=== PATIENT | female | born 1985 | race Caucasian/White ===

== ENCOUNTER 2017-08-28 09:55 | Outpatient (CLI) | payer BC, MEDICAID ==
[~2017-08-28] VITALS: Ht 167.6 cm; Wt 128.4 kg
[2017-08-28 11:22] VITALS: BP 117/55
[2017-08-28] MEDS ORDERED: PREN1TAB86 PO (11:38)
--- NOTE | 2017-08-29 08:13 | Physician Query-Final Dx ---
MAMTA BUNCH 08/29/17 0813: Clinic Account Progress/Dx Physician Query: Please give diagnosis Date of Service Aug 28, 2017 at 09:55 MELISSA JIANG DO 09/13/17 1049: Clinic Account Progress/Dx DIAGNOSIS: Diagnosis post coital spotting, third trimester previous section MAMTA BUNCH Aug 29, 2017 08:13 MELISSA JIANG DO Sep 13, 2017 10:49
== END 2017-08-28 11:50 | disposition home or self-care (01) ==
LOC: WSo 09:55 → LDRP 09:55 → WSo 11:50
PROVIDERS: ATTEND Obstetrics & Gynecology
DX: O26.853 Spotting complicating pregnancy, third trimester (principal); O34.219 Maternal care for unspecified type scar from previous cesarean delivery; Z3A.36 36 weeks gestation of pregnancy
CPT/HCPCS: 99212

== ENCOUNTER 2017-09-23 06:00 | Inpatient (IN) | payer BC, MEDICAID ==
[~2017-09-23] VITALS: Ht 167.6 cm; Wt 130.6 kg
[2017-09-23] VITALS (58 sets, daily range): BP systolic 98–172; BP diastolic 51–91
[~2017-09-23 06:00] MED LIST: PREN1TAB86 PO
[2017-09-23] MEDS ORDERED: OXYTOCIN/NORMAL SALINE 500 ML IV SCH ×2 (06:21→20:38)
--- OUTSIDE RECORDS SUMMARY | 2017-09-23 06:23 | XMS REPORT | Clinical Summary ---
Author Author User, [employer] Organization Kathie Durant DO, FACP Address Unknown Phone Allergies, Adverse Reactions, Alerts Allergy Name Reaction Description Start Date Severity Status Provider No Known Allergies Mayra Main Conditions or Problems Problem Name Problem Code Onset Date Status Entry Date Provider Comment Standard Description Annotate HEMATOCHEZIA 578.1 Active Kathie Durant Blood in stool WEIGHT GAIN, ABNORMAL 783.1 Active Kathie Durant Abnormal weight gain HYPERGLYCEMIA, MILD 790.6 Active Kathie Durant Other abnormal blood chemistry ANEMIA NOS 285.9 Correction Kathie Durant Anemia, unspecified ANEMIA, IRON DEFICIENCY NEC 280.8 Active Kathie Durant Other specified iron deficiency anemias DEPRESSION 311 Active Kathie Durant Depressive disorder, not elsewhere classified ADULT SITUATIONAL REACTION 309.9 Active Kathie Durant Unspecified adjustment reaction WELL WOMAN V70.0 Resolved Kathie Durant Routine general medical examination at a health care facility HYPERTENSION 401.1 Active Kathie Durant Benign essential hypertension SEBACEOUS CYST, SCALP 706.2 Active Kathie Durant Sebaceous cyst Medication List Medication Instructions Start Date Stop Date Generic Name NDC Status Provider Patient Instruction NUVARING 0.12-0.015 MG/24HR RING as directed ETONOGESTREL- ETHINYL ESTRADIOL 66368954363 Active Blank Bowden PHENTERMINE HCL 37.5 MG CAPS 1 PO Daily PHENTERMINE HCL 36751808106 No Longer Active Kathie Durant KEFLEX 500 MG CAP 1 PO TID for 7 days CEPHALEXIN 57705726072 No Longer Active Kathie Durant NORVASC 5 MG TAB 1 PO QD AMLODIPINE BESYLATE 57367154662 Active Kathie Her Durant FERROUS SULFATE CR 325 MG TBCR 1 PO every 3 days with food FERROUS SULFATE Active Kathie Her Durant WELLBUTRIN 75 MG TABS 1 PO BID BUPROPION HCL 40500626991 Active Kathie Her Durant TOPAMAX 25 MG TABS 1 PO BID TOPIRAMATE 38254186907 Active Kathie Durant ALPRAZOLAM 0.5 MG TABS 1 PO BID prn ALPRAZOLAM 90895842938 Active Kathie Her Durant Immunizations Vaccine Administration Date Value Standard Description Influenza vaccine given done influenza virus vaccine, unspecified formulation Vital Signs Date Name Value Unit Range Description blood pressure, diastolic - 8462-4 90 mm[Hg] BP chandra blood pressure, systolic - 8480-6 150 mm[Hg] BP sys pulse rate E&M - 8867-4 60 /min Heart rate respiratory rate E&M - 9279-1 14 /min Resp rate weight E&M - 3141-9 250 [lb_av] Weight Measured blood pressure, diastolic - 8462-4 98 mm[Hg] BP chandra blood pressure, systolic - 8480-6 154 mm[Hg] BP sys pulse rate E&M - 8867-4 74 /min Heart rate respiratory rate E&M - 9279-1 14 /min Resp rate weight E&M - 3141-9 240 [lb_av] Weight Measured blood pressure, diastolic - 8462-4 82 mm[Hg] BP chandra blood pressure, systolic - 8480-6 142 mm[Hg] BP sys pulse rate E&M - 8867-4 76 /min Heart rate respiratory rate E&M - 9279-1 14 /min Resp rate weight E&M - 3141-9 250 [lb_av] Weight Measured blood pressure, diastolic - 8462-4 94 mm[Hg] BP chandra blood pressure, systolic - 8480-6 138 mm[Hg] BP sys pulse rate E&M - 8867-4 102 /min Heart rate respiratory rate E&M - 9279-1 14 /min Resp rate temperature E&M 98.6 [degF] Body temperature weight E&M - 3141-9 255 [lb_av] Weight Measured blood pressure, diastolic - 8462-4 70 mm[Hg] BP chandra blood pressure, systolic - 8480-6 130 mm[Hg] BP sys pulse rate E&M - 8867-4 90 /min Heart rate respiratory rate E&M - 9279-1 14 /min Resp rate temperature E&M 98.6 [degF] Body temperature weight E&M - 3141-9 250 [lb_av] Weight Measured blood pressure, diastolic - 8462-4 90 mm[Hg] BP chandra blood pressure, systolic - 8480-6 145 mm[Hg] BP sys pulse rate E&M - 8867-4 96 /min Heart rate respiratory rate E&M - 9279-1 14 /min Resp rate weight E&M - 3141-9 246 [lb_av] Weight Measured blood pressure, diastolic - 8462-4 70 mm[Hg] BP chandra blood pressure, systolic - 8480-6 118 mm[Hg] BP sys height E&M - 8302-2 67 [in_us] Bdy height pulse rate E - 8867-4 80 /min Heart rate respiratory rate E& - 9279-1 14 /min Resp rate weight E& - 3141-9 248 [lb_av] Weight Measured Diagnostic Results Date Name Value Unit Range Description Clinical Lists Update: CBC,CMP,FLP,TSH,Free T4,ESR,HgA1c,Ferritin - Chemistry glucose, plasma fasting 90 mg/dL albumin, serum 4.4 g/dL alkaline phosphatase, serum 116 U/L urea nitrogen, blood 11 mg/dL calcium, serum 9.3 mg/dL chloride, serum 108 mmol/L cholesterol, serum 175 mg/dL carbon dioxide, venous blood 23 mmol/L creatinine, serum 0.84 mg/dL ferritin, serum 50 ng/mL thyroxine, serum, free 1.0 ng/dL HDL cholesterol, serum 47 mg/dL hemoglobin A1C, blood, as % of total hemoglobin 5.1 % thyroid stimulating hormone, serum 1.51 u[iU]/mL LDL cholesterol, serum 104 mg/dL potassium, serum 4.4 mmol/L protein, total, serum 8.0 g/dL aspartate aminotransferase (SGOT), serum 26 U/L alanine aminotransferase (SGPT), serum 21 U/L bilirubin, serum, total 0.3 mg/dL triglyceride, serum, fasting 121 mg/dL sodium, serum 141 mmol/L cholesterol/HDL ratio, serum, percent 3.7 Clinical Lists Update: CBC,CMP,FLP,TSH,Free T4,ESR,HgA1c,Ferritin - Hematology erythrocyte (RBC) count 4.81 10*6/mm3 erythrocyte sedimentation rate 17 mm/h hemoglobin, blood 14.2 g/dL hematocrit, blood 43.0 % red blood cell distribution width 14.4 % mean corpuscular volume, RBC 89.3 fL leukocyte count, blood 7.2 10*3/mm3 platelet count 161 10*3/mm3 Office Visit: Dr Durant'suzanne Check Up: Established Patient Visit - Chemistry alkaline phosphatase, serum 108 U/L Estimated Glomerular Filtration Rate (calc) 93 mL/min/1.73m2 creatinine, serum 0.84 mg/dL carbon dioxide, venous blood 21 mmol/L urea nitrogen, blood 13 mg/dL chloride, serum 105 mmol/L bilirubin, serum, total 0.4 mg/dL sodium, serum 138 mmol/L calcium, serum 9.7 mg/dL potassium, serum 4.0 mmol/L albumin, serum 4.6 g/dL protein, total, serum 8.3 g/dL aspartate aminotransferase (SGOT), serum 24 U/L ferritin, serum 120 ng/mL alanine aminotransferase (SGPT), serum 27 U/L glucose, plasma fasting 105 mg/dL Office Visit: Dr Garcia Check Up: Established Patient Visit - Hematology hematocrit, blood 42.8 % erythrocyte (RBC) count 4.98 10*6/mm3 red blood cell distribution width 13.4 % platelet count 218 10*3/mm3 mean corpuscular volume, RBC 86.1 fL hemoglobin, blood 14.6 g/dL leukocyte count, blood 6.9 10*3/mm3 Encounters Code Encounter Date Provider Facility CPT-86637 Ofc Vst, Est Level III 15:37:23 CDT Kathie Durant DO, FACP CPT-79669 Ofc Vst, Est Level IV 17:08:36 ENGINEERING AND OPERATIONS DIRECTOR Kathie Durant DO, FACP CPT-98974 Ofc Vst, Est Level IV 16:32:13 ENGINEERING AND OPERATIONS DIRECTOR Kathie Durant DO, FACP CPT-85892 Ofc Vst, Est Level IV 16:51:49 CDT Kathie Durant DO, FACP CPT-41772 Ofc Vst, Est Level IV 16:25:21 CDT Kathie Durant DO, FACP CPT-35902 Ofc Vst, New Level IV 15:08:17 CDT Kathie Durant DO, FACP Procedures Code Procedure Name Date Entry Date Standard Description CPT-33250 Handling of specimen from office to lab 15:56:44 ENGINEERING AND OPERATIONS DIRECTOR CPT-52125 Preventive, Est, (18-39) 15:56:44 ENGINEERING AND OPERATIONS DIRECTOR
--- OUTSIDE RECORDS SUMMARY | 2017-09-23 06:24 | XMS REPORT | Clinical Summary ---
Author Author User, [employer] Organization Kathie Durant DO, FACP Address Unknown [...] Generic Name NDC Status Provider Patient Instruction PHENTERMINE HCL 37.5 MG CAPS 1 PO Daily PHENTERMINE HCL 22318685681 No Longer Active Kathie Durant KEFLEX 500 MG CAP 1 PO TID for 7 days CEPHALEXIN 89728151368 No Longer Active Kathie Durant NORVASC 5 MG TAB 1 PO QD AMLODIPINE BESYLATE 45534684587 Active Kathie Durant FERROUS SULFATE CR 325 MG TBCR 1 PO every 3 days with food FERROUS SULFATE Active Kathie Her Carleen WELLBUTRIN 75 MG TABS 1 PO BID BUPROPION HCL 29336708519 Active Kathie Lawner TOPAMAX 25 MG TABS 1 PO BID TOPIRAMATE 60673669965 Active Kathie Durant ALPRAZOLAM 0.5 MG TABS 1 PO BID prn ALPRAZOLAM 00681880312 Active Kathie Her Durant Immunizations Vaccine Administration [...] 8302-2 67 [in_us] Bdy height pulse rate E&M - 8867-4 80 /min Heart rate respiratory rate E&M - 9279-1 14 /min Resp rate weight EChelsie - 3141-9 248 [lb_av] Weight Measured Diagnostic [...] plasma fasting 105 mg/dL Office Visit: Dr Durant'suzanne Check Up: Established Patient Visit - Hematology hematocrit, blood 42.8 % erythrocyte (RBC) count 4.98 10*6/mm3 red blood cell distribution width 13.4 % platelet count 218 10*3/mm3 mean corpuscular volume, RBC 86.1 fL hemoglobin, blood 14.6 g/dL leukocyte count, blood 6.9 10*3/mm3 Encounters Code Encounter Date Provider Facility CPT-19535 Ofc Vst, Est Level III 15:37:23 CDT Kathie Durant DO, FACP CPT-21486 Ofc Vst, Est Level IV 17:08:36 PARKING PATROLLER Kathie Durant DO, FACP CPT-01905 Ofc Vst, Est Level IV 16:32:13 PARKING PATROLLER Kathie Durant DO, FACP CPT-84195 Ofc Vst, Est Level IV 16:51:49 CDT Kathie Durant DO, FACP CPT-12540 Ofc Vst, Est Level IV 16:25:21 CDT Kathie Durant DO, FACP CPT-38900 Ofc Vst, New Level IV 15:08:17 CDT Kathie Durant DO, FACP Procedures Code Procedure Name Date Entry Date Standard Description CPT-48435 Handling of specimen from office to lab 15:56:44 PARKING PATROLLER CPT-40479 Preventive, Est, (18-39) 15:56:44 PARKING PATROLLER
--- OUTSIDE RECORDS SUMMARY | 2017-09-23 06:24 | XMS REPORT ---
Author Author DANA GALLEGOS [facility] Address [address] [place] [address] Care Team Providers Care Computer Game Programmer Name Role Phone DANA GALLEGOS Unavailable PROBLEMS Type Condition ICD9-CM Code [id number] Code Onset Dates Condition Status SNOMED Code Problem Attention-deficit hyperactivity disorder, predominantly hyperactive type F90.1 Active 031359200 ALLERGIES Unknown Allergies SOCIAL HISTORY No smoking Hx information available PLAN OF CARE VITAL SIGNS MEDICATIONS Medication Instructions Dosage Frequency Start Date End Date Duration Status Adderall 10 mg Orally twice a day 1 tablet in the morning 12h Active RESULTS No Results PROCEDURES No Known procedures IMMUNIZATIONS No Known Immunizations
--- OUTSIDE RECORDS SUMMARY | 2017-09-23 06:24 | XMS REPORT ---
Author Author DANA GALLEGOS [facility] Address [address] [place] [address] Care Team Providers Care Machine Welder Name Role Phone DANA GALLEGOS Unavailable PROBLEMS Type Condition ICD9-CM Code [id number] Code Onset Dates Condition Status SNOMED Code Problem Attention-deficit hyperactivity disorder, predominantly hyperactive type F90.1 Active 733816910 ALLERGIES Substance Reaction Event Type Date Status N.K.D.A. Unknown Non Drug Allergy Aug, Unknown SOCIAL HISTORY No smoking Hx information available PLAN OF CARE VITAL SIGNS MEDICATIONS Unknown Medications RESULTS No Results PROCEDURES No Known procedures IMMUNIZATIONS No Known Immunizations
--- OUTSIDE RECORDS SUMMARY | 2017-09-23 06:24 | XMS REPORT | Clinical Summary ---
Author Author User, [employer] Organization Kathie Durant DO, FACP Address Unknown [...] iron deficiency anemias DEPRESSION 311 Active Kathie Durnat Depressive disorder, not elsewhere classified ADULT SITUATIONAL REACTION 309.9 Active Kathie Durant Unspecified adjustment reaction WELL WOMAN V70.0 Resolved Kathie Durant Routine general medical examination at a health care facility HYPERTENSION 401.1 Active Kathie Durant Benign essential hypertension SEBACEOUS CYST, SCALP 706.2 Active Kathie Durant Sebaceous cyst Medication List Medication Instructions Start Date Stop Date Generic Name NDC Status Provider Patient Instruction KEFLEX 500 MG CAP 1 PO TID for 7 days CEPHALEXIN 16399811920 No Longer Active Kathie Durant NORVASC 5 MG TAB 1 PO QD AMLODIPINE BESYLATE 05079244874 Active Kathie Durant PHENTERMINE HCL 37.5 MG CAPS 1 PO Daily PHENTERMINE HCL 10577483915 Active Kathie Durant FERROUS SULFATE CR 325 MG TBCR 1 PO every 3 days with food FERROUS SULFATE Active Kathie Her Durant WELLBUTRIN 75 MG TABS 1 PO BID BUPROPION HCL 73564394518 Active Kathie Durant TOPAMAX 25 MG TABS 1 PO BID TOPIRAMATE 29641386077 Active Kathie Durant ALPRAZOLAM 0.5 MG TABS 1 PO BID prn ALPRAZOLAM 02989220655 Active Kathie Durant Immunizations Vaccine Administration Date Value Standard Description Influenza vaccine given done influenza virus vaccine, unspecified formulation Vital Signs Date Name Value Unit Range Description blood pressure, diastolic - 8462-4 98 mm[Hg] BP chandra blood pressure, systolic - 8480-6 154 mm[Hg] BP sys pulse rate E&M - 8867-4 74 /min Heart rate respiratory rate E&M - 9279-1 14 /min Resp rate weight E&M - 3141-9 240 [lb_av] Weight Measured blood pressure, diastolic - 8462-4 82 mm[Hg] BP chandar blood pressure, systolic - 8480-6 142 mm[Hg] [...] /min Resp rate weight E&M - 3141-9 248 [lb_av] Weight Measured Diagnostic [...] platelet count 161 10*3/mm3 Office Visit: Dr Durant's Check Up: Established Patient Visit - Chemistry [...] plasma fasting 105 mg/dL Office Visit: Dr Durant's Check Up: Established Patient Visit - Hematology hematocrit, blood 42.8 % erythrocyte (RBC) count 4.98 10*6/mm3 red blood cell distribution width 13.4 % platelet count 218 10*3/mm3 mean corpuscular volume, RBC 86.1 fL hemoglobin, blood 14.6 g/dL leukocyte count, blood 6.9 10*3/mm3 Encounters Code Encounter Date Provider Facility CPT-82711 Ofc Vst, Est Level IV 17:08:36 STICKER ON Kathie Durant DO, FACP CPT-77354 Ofc Vst, Est Level IV 16:32:13 STICKER ON Kathie Durant DO, FACP CPT-39679 Ofc Vst, Est Level IV 16:51:49 CDT Kathie Durant DO, FACP CPT-34715 Ofc Vst, Est Level IV 16:25:21 CDT Kathie Durant DO, FACP CPT-33759 Ofc Vst, New Level IV 15:08:17 CDT Kathie Durant DO, FACP Procedures Code Procedure Name Date Entry Date Standard Description CPT-88856 Handling of specimen from office to lab 15:56:44 STICKER ON CPT-38756 Preventive, Est, (18-39) 15:56:44 STICKER ON
--- OUTSIDE RECORDS SUMMARY | 2017-09-23 06:24 | XMS REPORT ---
Author Author AARON RUBY Organization [facility] Address [address] [place] [address] Care Team Providers Care Transit Mixer Operator Name Role Phone AARON RUBY Unavailable PROBLEMS Type Condition ICD9-CM Code [id number] Code Onset Dates Condition Status SNOMED Code Problem Attention-deficit hyperactivity disorder, predominantly hyperactive type F90.1 Active 636246444 ALLERGIES No Known Allergies SOCIAL HISTORY Never Assessed PLAN OF CARE Activity Details Follow Up prn Reason: VITAL SIGNS Height 66.5 in 2016-12-03 Weight 246.8 lbs 2016-12-03 Temperature 98.3 degrees Fahrenheit 2016-12-03 Heart Rate 76 bpm 2016-12-03 Respiratory Rate 20 2016-12-03 BMI 39.23 kg/m2 2016-12-03 Blood pressure systolic 110 mmHg 2016-12-03 Blood pressure diastolic 80 mmHg 2016-12-03 MEDICATIONS Medication Instructions Dosage Frequency Start Date End Date Duration Status Adderall 10 mg Orally twice a day 1 tablet in the morning 12h Active Xanax 0.5 MG Orally Twice a day PRN 1 tablet Active RESULTS Name Result Date Reference Range STREP A (IN HOUSE) 2016-12-03 STREP A negative Control + Lot # [id number] Exp date PROCEDURES Procedure Date Ordered Result Body Site STREP A ASSAY W/OPTIC Dec 03, 2016 IMMUNIZATIONS No Known Immunizations MEDICAL (GENERAL) HISTORY Type Description Date Medical History anxiety Medical History attention deficit hyperactivity disorder Surgical History section 2011 Hospitalization History child 2010
--- OUTSIDE RECORDS SUMMARY | 2017-09-23 06:24 | XMS REPORT | Clinical Summary ---
Author Author User, [employer] Organization Kathie Durant DO, FACP Address Unknown [...] 1 PO TID for 7 days CEPHALEXIN 91136571681 No Longer Active Kathie Durant NORVASC 5 MG TAB 1 PO QD AMLODIPINE BESYLATE 48012491743 Active Kathie Durant PHENTERMINE HCL 37.5 MG CAPS 1 PO Daily PHENTERMINE HCL 95321862822 Active Kathie Durant FERROUS SULFATE CR 325 MG TBCR 1 PO every 3 days with food FERROUS SULFATE Active Kathie Her Durant WELLBUTRIN 75 MG TABS 1 PO BID BUPROPION HCL 99767336871 Active Kathie Durant TOPAMAX 25 MG TABS 1 PO BID TOPIRAMATE 33285192513 Active Kathie Durant ALPRAZOLAM 0.5 MG TABS 1 PO BID prn ALPRAZOLAM 58916309835 Active Kathie Durant Immunizations Vaccine Administration Date [...] 10*3/mm3 Encounters Code Encounter Date Provider Facility CPT-32403 Ofc Vst, Est Level IV 17:08:36 GUARD RANGE Kathie Durant DO, FACP CPT-72993 Ofc Vst, Est Level IV 16:32:13 GUARD RANGE Kathie Durant DO, FACP CPT-37531 Ofc Vst, Est Level IV 16:51:49 CDT Kathie Durant DO, FACP CPT-72682 Ofc Vst, Est Level IV 16:25:21 CDT Kathie Durant DO, FACP CPT-27129 Ofc Vst, New Level IV 15:08:17 CDT Kathie Durant DO, FACP Procedures Code Procedure Name Date Entry Date Standard Description CPT-61299 Handling of specimen from office to lab 15:56:44 GUARD RANGE CPT-64448 Preventive, Est, (18-39) 15:56:44 GUARD RANGE
--- OUTSIDE RECORDS SUMMARY | 2017-09-23 06:24 | XMS REPORT ---
Author REN Cabrera [facility] [employer] Address Unknown Phone Unavailable Care Team Providers Care Leather Flesher Name Role Phone REN SMITH CP Unavailable Allergies No Known Allergies Problems Problem Type Condition Code Onset Dates Condition Status Assessment Visit for TB skin test Z11.1 Active Medications No Known Medications Procedures Procedure Coding System Code Date TB INTRADERMAL TEST CPT-4 09542 Sep 21, 2016 Results No Known Results Summary Purpose [employer]ClinicalWorks Submission
--- OUTSIDE RECORDS SUMMARY | 2017-09-23 06:24 | XMS REPORT ---
Author Author DANA GALLEGOS Organization [facility] Address [address] [place] [address] Care Team Providers Care Stitch Wheeler Name Role Phone DANA GALLEGOS Unavailable PROBLEMS Type Condition ICD9-CM Code [id number] Code Onset Dates Condition Status SNOMED Code Problem Attention-deficit hyperactivity disorder, predominantly hyperactive type F90.1 Active 557254106 Assessment Attention-deficit hyperactivity disorder, predominantly hyperactive type F90.1 Sep, Active 800068761 Assessment Overweight E66.3 Sep, Active 157663052 Assessment Well adult health check Z00.00 Sep, Active 302755164 ALLERGIES Substance Reaction Event Type Date Status N.K.D.A. Unknown Non Drug Allergy Sep, Unknown SOCIAL HISTORY No smoking Hx information available PLAN OF CARE VITAL SIGNS Height 66.5 in 2016-10-04 Weight 205 lbs 2016-10-04 Heart Rate 90 bpm 2016-10-04 Respiratory Rate 20 2016-10-04 BMI 32.59 kg/m2 2016-10-04 Blood pressure systolic 124 mmHg 2016-10-04 Blood pressure diastolic 80 mmHg 2016-10-04 MEDICATIONS Medication Instructions Dosage Frequency Start Date End Date Duration Status Xanax 0.5 MG Orally Twice a day PRN 1 tablet Active Adderall 10 mg Orally twice a day 1 tablet in the morning 12h Active RESULTS No Results PROCEDURES Procedure Date Ordered Related Diagnosis Body Site Preventive Care New Pt. Age 18-39 Oct 04, 2016 IMMUNIZATIONS No Known Immunizations
--- OUTSIDE RECORDS SUMMARY | 2017-09-23 06:25 | XMS REPORT | Continuity of Care Document ---
Author Author [facility] Organization [facility] Address Unknown Phone Unavailable Allergies Active Description Code Type Severity Reaction Onset Reported/Identified Relationship to Patient Clinical Status Yes No Known Drug Allergies [id number] Drug Allergy Unknown N/ A 08/28/2017 Medications Problems Date Dx Coded Attending Type Code Diagnosis Diagnosed By 09/16/2017 MELISSA JIANG DO Ot O26.853 SPOTTING COMPLICATING , THIRD T 09/16/2017 MELISSA JIANG DO Ot O34.219 MATERNAL CARE FOR UNSP TYPE SCAR FROM [place] 09/16/2017 MELISSA JIANG DO Ot Z3A.36 36 WEEKS GESTATION OF Procedures Results Encounters ACCT No. Visit Date/Time Discharge Status Pt. Type Provider Facility Loc./Unit Complaint [id number] 09/19/2017 08:00:00 2016 23:59:59 CLS Preadmit MELISSA JIANG DO PREVIOUS C/SECTION [id number] 09/12/2017 09:00:00 2016 23:59:59 CLS Preadmit MELISSA JIANG DO [facility] PREOP PREVIOUS C/SECTION [id number] 08/28/2017 09:55:00 2016 11:50:00 DIS Outpatient MELISSA JIANG DO [facility] WSo VAG BLEEDING [id number] 01/27/2016 10:40:00 2015 23:59:59 CLS Outpatient CHEYANNE VALENCIA PROGRAM ENGAGEMENT DIRECTOR [facility] OCC [id number] 2017 06:16:00 ACT Inpatient MELISSA JIANG DO [facility] LDRP TERM
[2017-09-23] MEDS ORDERED: MINERAL OIL CONCENTRATE 99.9% 15 ML UDC TOP PRN (06:30)
[2017-09-23 06:44] LABS: BASOPHILS # (AUTO) 0.1 10^3/uL (0.0-0.1); BASOPHILS % (AUTO) 1 % (0-10); EOSINOPHILS # (AUTO) 0.1 10^3/uL (0.0-0.3); EOSINOPHILS % (AUTO) 1 % (0-10); LYMPHOCYTES # (AUTO) 2.4 X 10^3 (1.0-4.0); LYMPHOCYTES % (AUTO) 24 % (12-44); MEAN CORPUSCULAR HEMOGLOBIN 28 PG (25-34); MEAN CORPUSCULAR HGB CONC 33 G/DL (32-36); MEAN CORPUSCULAR VOLUME 84 FL (80-99); MEAN PLATELET VOLUME 11.6 FL (7.4-10.4); MONOCYTES # (AUTO) 0.8 X 10^3 (0.0-1.0); MONOCYTES % (AUTO) 8 % (0-12); NEUTROPHILS # (AUTO) 6.7 X 10^3 (1.8-7.8); NEUTROPHILS % (AUTO) 66 % (42-75); PLATELET COUNT 244 10^3/uL (130-400); RED BLOOD COUNT 4.53 10^6/uL (4.35-5.85); RED CELL DISTRIBUTION WIDTH 14.9 % (10.0-14.5)
[2017-09-23] MEDS: D5 LR IV SOLUTION 1,000 ML IV SCH ×2 (07:23→16:09)
[2017-09-23] MEDS ORDERED: AMPICILLIN INJECTION 2,000 MG in NS (IVPB) 50 ML IV SCH (08:48)
[2017-09-23 09:05] LABS: BILIRUBIN,URINE NEGATIVE (NEGATIVE); KETONES,URINE NEGATIVE (NEGATIVE); LEUKOCYTE ESTERASE ,URINE NEGATIVE (NEGATIVE); NITRITE,URINE NEGATIVE (NEGATIVE); PH,URINE 7 (5-9); PROTEIN,URINE NEGATIVE (NEGATIVE); UROBILINOGEN,URINE NORMAL (NORMAL)
[2017-09-23] MEDS ORDERED: LACTATED RINGERS 1,000 ML IV ONE (12:46)
[2017-09-23] MEDS ORDERED: SUFENTA 0.6MCG/ML BUPIVA 0.125 100 ML ONE (12:47)
[2017-09-23] MEDS ORDERED: LACTATED RINGERS 1,000 ML IV SCH (13:36)
[2017-09-23] MEDS ORDERED: METOCLOPRAMIDE INJ 10 MG/2 ML (REGLAN) IV PRN (13:45)
[2017-09-23] MEDS ORDERED: NALOXONE 0.4 MG/ML 1 ML (NARCAN) VIAL IV PRN ×2 (13:45)
[2017-09-23] MEDS ORDERED: diphenhydrAMINE 50 MG/ML INJ (BENADRYL) IV PRN (13:45)
[2017-09-23] MEDS ORDERED: ONDANSETRON 4 MG/2 ML (SDV) Z0FRAN IV PRN (13:45)
[2017-09-23] MEDS ORDERED: EPIDURAL (SUFENTA 0.6MCG/ML BUPIVA 0.125%) 100 ML BAG EPI SCH (13:45)
[2017-09-23] MEDS: AMPICILLIN INJECTION 1,000 MG in NS (IVPB) 50 ML IV SCH ×2 (14:00→18:13)
[2017-09-23] MEDS ORDERED: CITRIC ACID/SOB CIT (BICITRA) 30 ML UDC ONE (19:09)
[2017-09-23] MEDS ORDERED: ceFAZolin 2 GM/50 ML NS 50 ML ONE (19:10)
[2017-09-23] MEDS ORDERED: FAMOTIDINE 20MG/2ML IV (PEPCID) ONE (19:10)
[2017-09-23] MEDS ORDERED: fentaNYL INJECTION 100 MCG/2 ML AMP ONE (19:10)
[2017-09-23] MEDS ORDERED: NS (IVPB) 250 ML ONE (19:12)
[2017-09-23] MEDS ORDERED: AZITHROMYCIN 500 MG (ZITHROMAX) VIAL ONE (19:12)
[2017-09-23] MEDS ORDERED: LIDOCAINE PF 2% 5 ML (XYLOCAINE) VIAL ONE (19:19)
[2017-09-23] MEDS ORDERED: BUPIVACAINE 0.5% 30 ML (SENSORCAINE) VIAL ONE (19:19)
--- NOTE | 2017-09-23 19:19 | Progress Note-Standard ---
Standard Progress Note Progress Notes/Assess & Plan Date Seen by Provider: Sep 23, 2017 Time Seen by Provider: 18:45 Progress/Assessment & Plan Zee was admitted this morning for trial of labor after . she was started on Pitocin at approximately 6 a.m. And at that time was closed. She had spontaneous rupture of membranes. She is group B strep positive and has received 3 doses of ampicillin. She has been augmented with Pitocin. After placement of the epidural at 2 cm dilation, she had several variable decelerations. Did appear that she had hyperstimulation so the Pitocin was stopped. Strip recovered but the contractions were 6-8 minutes apart. The Pitocin has been restarted and we now have a nice adequate labor pattern however she has been having variable decelerations again. Cervix is 3 cm dilated. head is high and there has been thin meconium noted. Due to failed trial of labor we will proceed with repeat the risks include bleeding, infection, injury to bowel bladder and ureter. There is a risk of decompensation of the fetus, there is a possibility of excessive bleeding due to uterine rupture. we will give prophylactic Ancef and Zithromax. She does have an epidural so as the epidural for anesthesia. Vital Sign - Last 12Hours 09/23/17 09/23/17 09/23/17 09/23/17 07:30 07:45 08:00 08:15 Temp 97.2 Pulse 92 81 84 80 Resp 18 18 18 18 B/P (MAP) 133/82 (99) 128/79 (95) 135/70 (91) 130/71 (90) O2 Delivery Room Air Room Air Room Air Room Air 09/23/17 09/23/17 09/23/17 09/23/17 08:30 08:45 09:00 09:15 Pulse 79 90 77 77 Resp 18 18 18 18 B/P (MAP) 134/77 (96) 127/72 (90) 131/74 (93) 131/74 (93) O2 Delivery Room Air Room Air Room Air Room Air 09/23/17 09/23/17 09/23/17 09/23/17 09:30 09:45 10:00 10:15 Pulse 84 75 79 80 Resp 18 18 18 18 B/P (MAP) 113/64 (80) 113/64 (80) 115/56 (75) 115/56 (75) O2 Delivery Room Air Room Air Room Air Room Air 09/23/17 09/23/17 09/23/17 09/23/17 10:30 10:45 11:00 11:15 Pulse 82 74 78 80 Resp 18 18 18 18 B/P (MAP) 116/57 (76) 116/57 (76) 124/75 (91) 124/75 (91) O2 Delivery Room Air Room Air Room Air Room Air 09/23/17 09/23/17 09/23/17 09/23/17 11:30 11:45 12:00 12:15 Temp 96.6 Pulse 75 81 74 86 Resp 18 18 18 18 B/P (MAP) 111/72 (85) 129/76 (93) 131/75 (93) 135/90 (105) O2 Delivery Room Air Room Air Room Air Room Air 09/23/17 09/23/17 09/23/17 09/23/17 12:30 12:45 13:00 13:11 Pulse 81 81 94 Resp 18 18 18 18 B/P (MAP) 125/62 (83) 125/62 (83) 157/69 (98) Pulse Ox 100 O2 Delivery Room Air Room Air Room Air 09/23/17 09/23/17 09/23/17 09/23/17 13:14 13:15 13:17 13:23 Pulse 89 90 90 Resp 18 18 18 B/P (MAP) 150/64 (92) 138/66 (90) 155/91 (112) Pulse Ox 100 100 100 O2 Delivery Room Air Room Air Room Air Room Air 09/23/17 09/23/17 09/23/17 09/23/17 13:26 13:29 13:33 13:35 Pulse 88 84 81 82 Resp 18 18 18 18 B/P (MAP) 128/73 (91) 120/66 (84) 129/72 (91) 129/65 (86) Pulse Ox 100 100 100 100 O2 Delivery Room Air Room Air Room Air Room Air 09/23/17 09/23/17 09/23/17 09/23/17 13:36 13:40 13:45 13:50 Pulse 88 83 81 76 Resp 18 18 18 18 B/P (MAP) 128/73 (91) 134/66 (88) 121/70 (87) 115/61 (79) Pulse Ox 100 100 100 100 O2 Delivery Room Air Room Air Room Air 09/23/17 09/23/17 09/23/17 09/23/17 13:55 14:00 14:15 14:30 Pulse 82 76 69 69 Resp 18 18 18 18 B/P (MAP) 107/56 (73) 115/57 (76) 117/71 (86) 117/71 (86) Pulse Ox 100 100 100 100 O2 Delivery Room Air Room Air Room Air Room Air 09/23/17 09/23/17 09/23/17 09/23/17 14:40 14:45 15:00 15:15 Pulse 75 72 69 Resp 18 18 18 B/P (MAP) 108/55 (72) 98/55 (69) Pulse Ox 100 100 100 100 O2 Delivery Non Rebreather Non Rebreather Non Rebreather Non Rebreather O2 Flow Rate 10.00 10.00 10.00 10.00 09/23/17 09/23/17 09/23/17 09/23/17 15:30 15:45 16:00 16:15 Pulse 66 72 81 74 Resp 18 18 18 18 B/P (MAP) 109/59 (76) 113/61 (78) 139/51 (80) 121/67 (85) Pulse Ox 100 100 100 99 O2 Delivery Non Rebreather Non Rebreather Room Air Room Air O2 Flow Rate 10.00 10.00 09/23/17 09/23/17 09/23/17 09/23/17 16:30 16:45 17:00 17:15 Pulse 79 78 78 80 Resp 18 18 18 18 B/P (MAP) 119/69 (86) 116/63 (80) 115/75 (88) 130/65 (86) Pulse Ox 100 99 99 99 O2 Delivery Room Air Room Air Room Air Room Air 09/23/17 09/23/17 09/23/17 09/23/17 17:30 17:45 18:00 18:15 Pulse 80 92 88 92 Resp 18 18 18 18 B/P (MAP) 115/61 (79) 119/68 (85) 126/70 (88) Pulse Ox 99 99 100 100 O2 Delivery Room Air Room Air Room Air Room Air Intake and Output 09/24/17 00:00 Intake Total 2000 ml Balance 2000 ml MELISSA JIANG DO Sep 23, 2017 19:19
[2017-09-23] MEDS ORDERED: FAMOTIDINE 20MG/2ML IV (PEPCID) IV ONE (19:30)
[2017-09-23] MEDS ORDERED: ONDANSETRON 4 MG/2 ML (SDV) Z0FRAN ONE (19:30)
[2017-09-23] MEDS ORDERED: OXYTOCIN/NORMAL SALINE 500 ML IV ONE (19:30)
[2017-09-23] MEDS ORDERED: AZITHROMYCIN INJECTION 500 MG in NS (IVPB) 250 ML IV NR (19:30)
[2017-09-23] MEDS ORDERED: CITRIC ACID/SOB CIT (BICITRA) 30 ML UDC PO ONE (19:30)
[2017-09-23] MEDS ORDERED: ceFAZolin 2 GM/50 ML NS 50 ML IV NR (19:30)
[2017-09-23] MEDS ORDERED: ONDANSETRON 4 MG/2 ML (SDV) Z0FRAN IVP ONE (19:30)
[2017-09-23] MEDS ORDERED: METOCLOPRAMIDE INJ 10 MG/2 ML (REGLAN) IV ONE (19:30)
[2017-09-23] MEDS ORDERED: D5 LR IV SOLUTION 1,000 ML IV SCH (20:38)
[2017-09-23] MEDS ORDERED: MEASLES,MUMPS,RUBELLA 1 EA INJ SC SCH (20:45)
[2017-09-23] MEDS ORDERED: HYDROmorphone (DILAUDID) 2 MG/ML VIAL IVP PRN (20:45)
[2017-09-23] MEDS ORDERED: ONDANSETRON 4 MG/2 ML (SDV) Z0FRAN IVP PRN (20:45)
[2017-09-23] MEDS ORDERED: TETANUS,DIPTH,PERTUSS P/F (BOOSTRIX) 0.5 ML VIAL IM SCH (20:45)
--- NOTE | 2017-09-23 20:53 | Cesarean Section Operative ---
Procedure Procedure Note Pre-operative Diagnosis: Hermila Palafox is a 32 /Para 1 /0 , Gestational Age 40 weeks, failed TOLAC, non reassuring hearttones, bicornuate/full septate uterus GBS +. meconium fluid. Post-operative Diagnosis: same, suspected occult cord prolapse Procedure: Repeat low transverse section Physician: MELISSA JIANG Estimated blood loss: 300 mL Disposition: stable Findings: Viable female infant, Apgars 7/7, weight 6#11, intact placenta, 3vc, fulls septum/bicornuate tubes, and ovaries. Indications:Hermila Palafox is a 32 /Para 1 /0 ,Gestational Age 40 weeks, failed TOLAC, non reassuring hearttones, bicornuate/full septate uterus. Hermila desired a TOLAC. She was advised of the risks of TOLAC including failure, uterine rupture, distress, etc. In addition she was advised of intermediate chances of success due to uterine malformation. however, she desired TOLAC. She was admitted at 40 weeks of gestation. She is GBS + so ampicillin was started for prophylaxis. Pitocin was begun. Cervix was closed on admission. She did have SROM at 12:30 am and was 1 cm dilated. FSE placed. She progressed to 2 cm dilation and had epidural placement. following this there were variable decelerations that gradually deepened so Pitocin was stopped. the strip improved but contractions were spaced further apart (every 6 minutes). The Pitocin was restarted and she did progress to 3 cm. However, began having variable decelerations again. Decision to proceed with repeat section at that time. She was given Ancef 1 gram IV and Azithromycin 500 mg IV preoperatively. While we were prepping to move her to the back, despite stopping Pitocin, she had longer and deeper decelerations and some late decelerations. She was moved to the back where the epidural was redosed. Procedure Details: The patient was seen in pre-op and the procedure was discussed with the patient in full, including the risks, benefits, and alternatives. All questions were answered. The patient was taken to the operating room and a time out was performed, verifying patient and procedure. the patient was placed in the dorsal supine with leftward tilt for uterine displacement.~ Her abdomen was then prepped and draped in the typical sterile fashion. A Pfannenstiel skin incision was made using a scalpel and carried down through the underlying fascia. It was noted that there was direct entry into the peritoneum. There was omental tissue stuck to the posterior fascia. The fascia was incised in the midline and tented up using Nora clamps. On both the inferior and superior fascia side the rectus muscle was dissected off bluntly and sharply using Ventura scissors. The Hartley bulb was noted to be protruding through the muscles (within the bladder, but the bladder was advanced and stuck to the abdominal wall. The peritoneum was identified and entered bluntly in the midline. This was then stretched laterally using manual strength. After entering the abdominal cavity and confirming lack of intraperitoneal adhesions, an extra large Danny retractor was placed and the lower uterine segment was visualized. A scalpel was utilized to make a low transverse uterine incision. There was thick meconium noted. The infant's head was grasped and brought to the level of the incision with the assistance of the silastic suction. Fundal pressure was applied and was delivered without difficulty. Mouth and nares were suctioned with bulb suction. After the umbilical cord was clamped and cut, the infant was handed off to the pediatric staff. A sample of cord blood was then obtained. Cord gas sent. pH 7.2. The placenta was delivered intact via uterine massage. The uterus was exteriorized and cleared of all clots and debris. There was a uterine septum that goes directly to the cervix noted. The uterine incision was closed using 0 Vicryl in a running locked fashion taking care to not close off the left side of the uterus (baby was in the right). A second imbricated layer was placed using 0 Vicryl in a running fashion as well. The uterus was flexed forward and the posterior rectouterine space was inspected and cleared of all clots and debris. Again the hysterotomy site was examined and hemostasis was observed. The bilateral tubes and ovaries appeared normal. The uterus was placed back into the abdominal cavity and abdominal gutters were cleared of all clots and debris. A final check of the uterine incision showed it to be hemostatic. The peritoneum was closed using 3-0 Vicryl in a running fashion. The urine was noted to be bloody but there was not any evident bladder injury. The fascia was closed with 0 Vicryl in a running fashion. The subcutaneous space was hemostatic, and irrigated. The subcutaneous space was closed with 3-0 Vicryl in several single interrupted stitches. The skin was then closed using 4-0 Monocryl in a running subcuticular fashion. The skin edges were reapproximated together and were hemostatic. A pressure dressing was applied. All sponge, lap and needle counts were correct at the end of the procedure per nursing. Vitals - Labs Vital Signs - I&O Vital Signs Date Time Temp Pulse Resp B/P (MAP) Pulse Ox O2 Delivery O2 Flow Rate FiO2 09/23/17 19:00 99.0 79 18 107/58 (74) 100 Room Air 09/23/17 18:45 99.0 79 18 107/58 (74) 100 Room Air 09/23/17 18:30 90 18 120/65 (83) 100 Room Air 09/23/17 18:15 92 18 126/70 (88) 100 Room Air 09/23/17 18:00 88 18 119/68 (85) 100 Room Air 09/23/17 17:45 92 18 99 Room Air 09/23/17 17:30 80 18 115/61 (79) 99 Room Air 09/23/17 17:15 80 18 130/65 (86) 99 Room Air 09/23/17 17:00 78 18 115/75 (88) 99 Room Air 09/23/17 16:45 78 18 116/63 (80) 99 Room Air 09/23/17 16:30 79 18 119/69 (86) 100 Room Air 09/23/17 16:15 74 18 121/67 (85) 99 Room Air 09/23/17 16:00 81 18 139/51 (80) 100 Room Air 09/23/17 15:45 72 18 113/61 (78) 100 Non Rebreather 10.00 09/23/17 15:30 66 18 109/59 (76) 100 Non Rebreather 10.00 09/23/17 15:15 69 18 98/55 (69) 100 Non Rebreather 10.00 09/23/17 15:00 72 18 108/55 (72) 100 Non Rebreather 10.00 09/23/17 14:45 75 18 100 Non Rebreather 10.00 09/23/17 14:40 100 Non Rebreather 10.00 09/23/17 14:30 69 18 117/71 (86) 100 Room Air 09/23/17 14:15 69 18 117/71 (86) 100 Room Air 09/23/17 14:00 76 18 115/57 (76) 100 Room Air 09/23/17 13:55 82 18 107/56 (73) 100 Room Air 09/23/17 13:50 76 18 115/61 (79) 100 Room Air 09/23/17 13:45 81 18 121/70 (87) 100 09/23/17 13:40 83 18 134/66 (88) 100 Room Air 09/23/17 13:36 88 18 128/73 (91) 100 Room Air 09/23/17 13:35 82 18 129/65 (86) 100 Room Air 09/23/17 13:33 81 18 129/72 (91) 100 Room Air 09/23/17 13:29 84 18 120/66 (84) 100 Room Air 09/23/17 13:26 88 18 128/73 (91) 100 Room Air 09/23/17 13:23 90 18 155/91 (112) 100 Room Air 09/23/17 13:17 90 18 138/66 (90) 100 Room Air 09/23/17 13:15 Room Air 09/23/17 13:14 89 18 150/64 (92) 100 Room Air 09/23/17 13:11 94 18 157/69 (98) 100 09/23/17 13:00 81 18 125/62 (83) Room Air 09/23/17 12:45 81 18 125/62 (83) Room Air 09/23/17 12:30 18 Room Air 09/23/17 12:15 86 18 135/90 (105) Room Air 09/23/17 12:00 74 18 131/75 (93) Room Air 09/23/17 11:45 96.6 81 18 129/76 (93) Room Air 09/23/17 11:30 75 18 111/72 (85) Room Air 09/23/17 11:15 80 18 124/75 (91) Room Air 09/23/17 11:00 78 18 124/75 (91) Room Air 09/23/17 10:45 74 18 116/57 (76) Room Air 09/23/17 10:30 82 18 116/57 (76) Room Air 09/23/17 10:15 80 18 115/56 (75) Room Air 09/23/17 10:00 79 18 115/56 (75) Room Air 09/23/17 09:45 75 18 113/64 (80) Room Air 09/23/17 09:30 84 18 113/64 (80) Room Air 09/23/17 09:15 77 18 131/74 (93) Room Air 09/23/17 09:00 77 18 131/74 (93) Room Air 09/23/17 08:45 90 18 127/72 (90) Room Air 09/23/17 08:30 79 18 134/77 (96) Room Air 09/23/17 08:15 80 18 130/71 (90) Room Air 09/23/17 08:00 84 18 135/70 (91) Room Air 09/23/17 07:45 81 18 128/79 (95) Room Air 09/23/17 07:30 97.2 92 18 133/82 (99) Room Air 09/23/17 07:00 97.8 82 18 108/61 (77) Room Air I & O 09/24/17 07:00 Intake Total 2050 ml Balance 2050 ml Labs Laboratory Tests 09/23/17 06:15: Urine Color YELLOW, Urine Clarity CLEAR, Urine pH 7, Urine Specific [place] 1.015L, Urine Protein NEGATIVE, Urine Glucose (UA) NEGATIVE, Urine Ketones NEGATIVE, Urine Nitrite NEGATIVE, Urine Bilirubin NEGATIVE, Urine Urobilinogen NORMAL, Urine Leukocyte Esterase NEGATIVE, Urine RBC (Auto) NEGATIVE, Urine RBC NONE, Urine WBC NONE, Urine Squamous Epithelial Cells 2-5, Urine Crystals NONE, Urine Bacteria FEWH, Urine Casts NONE, Urine Mucus NEGATIVE, Urine Culture Indicated NO 09/23/17 06:30: White Blood Count 10.0, Red Blood Count 4.53, Hemoglobin 12.5, Hematocrit 38, Mean Corpuscular Volume 84, Mean Corpuscular Hemoglobin 28, Mean Corpuscular Hemoglobin Concent 33, Red Cell Distribution Width 14.9H, Platelet Count 244, Mean Platelet Volume 11.6H, Neutrophils (%) (Auto) 66, Lymphocytes (%) (Auto) 24 , Monocytes (%) (Auto) 8, Eosinophils (%) (Auto) 1, Basophils (%) (Auto) 1, Neutrophils # (Auto) 6.7, Lymphocytes # (Auto) 2.4, Monocytes # (Auto) 0.8, Eosinophils # (Auto) 0.1, Basophils # (Auto) 0.1 MELISSA JIANG DO Sep 23, 2017 20:53
[2017-09-23] MEDS: DOCUSATE SODIUM 100 MG (COLACE) CAP PO SCH (21:48)
[2017-09-23] MEDS: KETOROLAC 30 MG/ML VIAL IVP SCH (21:48)
[2017-09-23] MEDS: CATHETER FLUSH 10 ML SYR IV SCH (22:38)
[2017-09-23] MEDS: IBUPROFEN 600 MG (MOTRIN) TAB PO SCH (22:39)
[2017-09-23] MEDS: HYDROcodone/APAP 5 MG/325 MG (LORTAB) TAB PO PRN (23:36)
[2017-09-24] MEDS: IBUPROFEN 600 MG (MOTRIN) TAB PO SCH ×3 (03:38→21:48)
[2017-09-24 04:10] VITALS: BP 108/68
[2017-09-24] MEDS: KETOROLAC 30 MG/ML VIAL IVP SCH ×2 (04:10→09:55)
[2017-09-24] MEDS: HYDROcodone/APAP 5 MG/325 MG (LORTAB) TAB PO PRN ×3 (04:57→20:09)
[2017-09-24 06:53] LABS: BASOPHILS % (AUTO) 0 % (0-10); EOSINOPHILS # (AUTO) 0.1 10^3/uL (0.0-0.3); EOSINOPHILS % (AUTO) 1 % (0-10); LYMPHOCYTES # (AUTO) 2.2 X 10^3 (1.0-4.0); LYMPHOCYTES % (AUTO) 16 % (12-44); MEAN CORPUSCULAR HEMOGLOBIN 27 PG (25-34); MEAN CORPUSCULAR HGB CONC 32 G/DL (32-36); MEAN CORPUSCULAR VOLUME 85 FL (80-99); MEAN PLATELET VOLUME 11.8 FL (7.4-10.4); MONOCYTES % (AUTO) 8 % (0-12); NEUTROPHILS # (AUTO) 9.8 X 10^3 (1.8-7.8); NEUTROPHILS % (AUTO) 75 % (42-75); PLATELET COUNT 179 10^3/uL (130-400); RED CELL DISTRIBUTION WIDTH 14.8 % (10.0-14.5); WHITE BLOOD COUNT 13.1 10^3/uL (4.3-11.0)
--- NOTE | 2017-09-24 09:36 | Postpartum Progress Note ---
Post Op Post-operative Day #1 s/p RLTCS, Failed TOLAC, occult cord prolapse Subjective: Patient is without complaints. Ambulating, voiding after urena removed. Urena removed this morning. Had bloody urine after delivery and this has cleared completely. Extensive adhesions and manipulating the bladder causing this but no suspected bladder injury. Tolerating a regular diet without nausea or vomiting. Normal lochia. Pain is well controlled with oral pain medications. Passing flatus. breast feeding. Objective: Laboratory Tests Test 09/24/17 06:18 Range/Units White Blood Count 13.1 H 4.3-11.0 10^3/uL Red Blood Count 3.80 L 4.35-5.85 10^6/uL Hemoglobin 10.3 L 11.5-16.0 G/DL Hematocrit 32 L 35-52 % Mean Corpuscular Volume 85 80-99 FL Mean Corpuscular Hemoglobin 27 25-34 PG Mean Corpuscular Hemoglobin Concent 32 32-36 G/DL Red Cell Distribution Width 14.8 H 10.0-14.5 % Platelet Count 179 130-400 10^3/uL Mean Platelet Volume 11.8 H 7.4-10.4 FL Neutrophils (%) (Auto) 75 42-75 % Lymphocytes (%) (Auto) 16 12-44 % Monocytes (%) (Auto) 8 0-12 % Eosinophils (%) (Auto) 1 0-10 % Basophils (%) (Auto) 0 0-10 % Neutrophils # (Auto) 9.8 H 1.8-7.8 X 10^3 Lymphocytes # (Auto) 2.2 1.0-4.0 X 10^3 Monocytes # (Auto) 1.0 0.0-1.0 X 10^3 Eosinophils # (Auto) 0.1 0.0-0.3 10^3/uL Basophils # (Auto) 0.0 0.0-0.1 10^3/uL Vital Sign - Last 12Hours 09/23/17 09/24/17 23:36 04:10 Temp 99.0 97.8 Pulse 85 78 Resp 18 16 B/P (MAP) 106/59 (75) 108/68 (81) Pulse Ox 95 98 O2 Delivery Room Air Room Air Physical Exam: General - Alert and oriented, no apparent distress Abdomen - Soft, appropriately tender to palpation, non-distended, fundus firm at umbilicus Incision - clean, dry and intact; no erythema or induration, no drainage Extremities - no edema, negative Sabrina's bilaterally Assessment: 1. post-operative day # 1, status post RLTCS. Recovering well, hemodynamically stable 2. Acute blood loss anemia - stable Plan: Routine post-operative care. Encourage breast feeding. Encourage ambulation. VTE prophylaxis: SCDs. Ferrous sulfate supplementation. Plan for discharge tomorrow or Tuesday Vitals - Labs Vital Signs - I&O Vital Signs Date Time Temp Pulse Resp B/P (MAP) Pulse Ox O2 Delivery O2 Flow Rate FiO2 09/24/17 04:10 97.8 78 16 108/68 (81) 98 Room Air 09/23/17 23:36 99.0 85 18 106/59 (75) 95 Room Air 09/23/17 19:33 83 18 115/63 (80) 100 Non Rebreather 12.00 09/23/17 19:17 97.7 87 18 172/87 (115) 94 Room Air 09/23/17 19:00 99.0 79 18 107/58 (74) 100 Room Air 09/23/17 18:45 99.0 79 18 107/58 (74) 100 Room Air 09/23/17 18:30 90 18 120/65 (83) 100 Room Air 09/23/17 18:15 92 18 126/70 (88) 100 Room Air 09/23/17 18:00 88 18 119/68 (85) 100 Room Air 09/23/17 17:45 92 18 99 Room Air 09/23/17 17:30 80 18 115/61 (79) 99 Room Air 09/23/17 17:15 80 18 130/65 (86) 99 Room Air 09/23/17 17:00 78 18 115/75 (88) 99 Room Air 09/23/17 16:45 78 18 116/63 (80) 99 Room Air 09/23/17 16:30 79 18 119/69 (86) 100 Room Air 09/23/17 16:15 74 18 121/67 (85) 99 Room Air 09/23/17 16:00 81 18 139/51 (80) 100 Room Air 09/23/17 15:45 72 18 113/61 (78) 100 Non Rebreather 10.00 09/23/17 15:30 66 18 109/59 (76) 100 Non Rebreather 10.00 09/23/17 15:15 69 18 98/55 (69) 100 Non Rebreather 10.00 09/23/17 15:00 72 18 108/55 (72) 100 Non Rebreather 10.00 09/23/17 14:45 75 18 100 Non Rebreather 10.00 09/23/17 14:40 100 Non Rebreather 10.00 09/23/17 14:30 69 18 117/71 (86) 100 Room Air 09/23/17 14:15 69 18 117/71 (86) 100 Room Air 09/23/17 14:00 76 18 115/57 (76) 100 Room Air 09/23/17 13:55 82 18 107/56 (73) 100 Room Air 09/23/17 13:50 76 18 115/61 (79) 100 Room Air 09/23/17 13:45 81 18 121/70 (87) 100 09/23/17 13:40 83 18 134/66 (88) 100 Room Air 09/23/17 13:36 88 18 128/73 (91) 100 Room Air 09/23/17 13:35 82 18 129/65 (86) 100 Room Air 09/23/17 13:33 81 18 129/72 (91) 100 Room Air 09/23/17 13:29 84 18 120/66 (84) 100 Room Air 09/23/17 13:26 88 18 128/73 (91) 100 Room Air 09/23/17 13:23 90 18 155/91 (112) 100 Room Air 09/23/17 13:17 90 18 138/66 (90) 100 Room Air 09/23/17 13:15 Room Air 09/23/17 13:14 89 18 150/64 (92) 100 Room Air 09/23/17 13:11 94 18 157/69 (98) 100 09/23/17 13:00 81 18 125/62 (83) Room Air 09/23/17 12:45 81 18 125/62 (83) Room Air 09/23/17 12:30 18 Room Air 09/23/17 12:15 86 18 135/90 (105) Room Air 09/23/17 12:00 74 18 131/75 (93) Room Air 09/23/17 11:45 96.6 81 18 129/76 (93) Room Air 09/23/17 11:30 75 18 111/72 (85) Room Air 09/23/17 11:15 80 18 124/75 (91) Room Air 09/23/17 11:00 78 18 124/75 (91) Room Air 09/23/17 10:45 74 18 116/57 (76) Room Air 09/23/17 10:30 82 18 116/57 (76) Room Air 09/23/17 10:15 80 18 115/56 (75) Room Air 09/23/17 10:00 79 18 115/56 (75) Room Air 09/23/17 09:45 75 18 113/64 (80) Room Air Labs Laboratory Tests 09/24/17 06:18: White Blood Count 13.1H, Red Blood Count 3.80L, Hemoglobin 10.3L, Hematocrit 32L , Mean Corpuscular Volume 85, Mean Corpuscular Hemoglobin 27, Mean Corpuscular Hemoglobin Concent 32, Red Cell Distribution Width 14.8H, Platelet Count 179, Mean Platelet Volume 11.8H, Neutrophils (%) (Auto) 75, Lymphocytes (%) (Auto) 16 , Monocytes (%) (Auto) 8, Eosinophils (%) (Auto) 1, Basophils (%) (Auto) 0, Neutrophils # (Auto) 9.8H, Lymphocytes # (Auto) 2.2, Monocytes # (Auto) 1.0, Eosinophils # (Auto) 0.1, Basophils # (Auto) 0.0 MELISSA JIANG DO Sep 24, 2017 09:36
[2017-09-24 09:55] VITALS: BP 104/65
[2017-09-24] MEDS: DOCUSATE SODIUM 100 MG (COLACE) CAP PO SCH ×2 (09:55→21:47)
--- NOTE | 2017-09-24 10:51 | Anesthesia-Regional Post-Op ---
Regional Patient Condition Mental Status: Alert, Oriented x3 Circulation: Same as Pre-Op Headache: Absent Sensation: Full Recovery Motor Block: Absent Post Op Complications Complications None Follow Up Care/Instructions Patient Instructions None needed. Anesthesia/Patient Condition Patient is doing well, no complaints, stable vital signs, no apparent adverse anesthesia problems. No complications reported per nursing. KALYN ALICIA CRNA Sep 24, 2017 10:51
--- NOTE | 2017-09-24 10:52 | Progress Note-Standard ---
Standard Progress Note Progress Notes/Assess & Plan Date Seen by Provider: Sep 24, 2017 Time Seen by Provider: 10:45 Progress/Assessment & Plan epidural catheter dc/d with no problems ... blue tip intact. back D/I KALYN ALICIA CRNA Sep 24, 2017 10:52
[2017-09-24 13:30] VITALS: BP 107/70
[2017-09-24 16:00] VITALS: BP 123/78
[2017-09-24 20:05] VITALS: BP 111/76
[2017-09-24] MEDS: ENOXAPARIN 40 MG/0.4 ML (LOVENOX) SYR SC SCH (21:48)
[2017-09-25 03:11] VITALS: BP 116/70
[2017-09-25] MEDS: HYDROcodone/APAP 5 MG/325 MG (LORTAB) TAB PO PRN ×4 (03:12→21:30)
[2017-09-25] MEDS: IBUPROFEN 600 MG (MOTRIN) TAB PO SCH ×4 (03:12→21:30)
[2017-09-25 08:48] VITALS: BP 101/65
[2017-09-25] MEDS: FERROUS SULF 325 MG (IRON) TAB PO SCH (08:53)
[2017-09-25] MEDS: DOCUSATE SODIUM 100 MG (COLACE) CAP PO SCH ×2 (08:53→21:30)
--- NOTE | 2017-09-25 12:38 | Postpartum Progress Note ---
Post Op Post-operative Day #2 RLTCS, Failed TOLAC Subjective: Patient is without complaints. Ambulating, voiding after urena removed. Tolerating a regular diet without nausea or vomiting. Normal lochia. Pain is well controlled with oral pain medications. Passing flatus. breast feeding. No BM. Still with abdominal pain with movement. Will plan dc home tomorrow. Objective: Vital Signs 09/23/17 09/25/17 19:33 08:48 Temp 97.3 Pulse 80 Resp 18 B/P (MAP) 101/65 (77) Pulse Ox 97 O2 Delivery Room Air O2 Flow Rate 12.00 Physical Exam: General - Alert and oriented, no apparent distress Abdomen - Soft, appropriately tender to palpation, non-distended, fundus firm at umbilicus Incision - clean, dry and intact; no erythema or induration, no drainage Extremities - no edema, negative Sabrina's bilaterally Assessment: 1. post-operative day # 2, status post RLTCS, Failed TOLAC. Recovering well, hemodynamically stable Plan: Routine post-operative care. Encourage breast feeding. Encourage ambulation. VTE prophylaxis: SCDs. Ferrous sulfate supplementation. Plan for discharge tomorrow Vitals - Labs Vital Signs - I&O Vital Signs Date Time Temp Pulse Resp B/P (MAP) Pulse Ox O2 Delivery O2 Flow Rate FiO2 09/25/17 08:48 97.3 80 18 101/65 (77) 97 Room Air 09/25/17 03:11 97.9 84 18 116/70 (85) 95 Room Air 09/24/17 20:05 98.0 76 18 111/76 (88) 97 Room Air 09/24/17 16:00 98.6 76 18 123/78 (93) 97 Room Air 09/24/17 13:30 98.5 104 18 107/70 (82) 98 Room Air Labs Microbiology 09/23/17 Urine Culture - Preliminary, Resulted MELISSA JIANG DO Sep 25, 2017 12:38
[2017-09-25] MEDS ORDERED: FERR-74 PO (12:58)
[2017-09-25] MEDS ORDERED: IBUP-1773 PO (12:58)
[2017-09-25] MEDS ORDERED: DOCU100C37 PO (12:58)
[2017-09-25] MEDS ORDERED: Hydrocodone Bit/Acetaminophen PO (12:58)
[2017-09-25] MEDS ORDERED: MILK OF MAGNESIA 400 MG/5 ML 30 ML UDC PO PRN (13:30)
[2017-09-25] MEDS ORDERED: BISACODYL 10 MG SUPP (DULCOLAX) PR PRN (13:30)
[2017-09-25 14:52] VITALS: BP 100/63
[2017-09-25 21:30] VITALS: BP 112/71
[2017-09-25] MEDS: metroNIDAZOLE 500 MG (FLAGYL) TAB PO SCH (21:30)
[2017-09-25] MEDS: ENOXAPARIN 40 MG/0.4 ML (LOVENOX) SYR SC SCH (21:30)
[2017-09-26 03:30] VITALS: BP 98/70
[2017-09-26] MEDS: IBUPROFEN 600 MG (MOTRIN) TAB PO SCH ×4 (03:30→18:03)
[2017-09-26] MEDS: CATHETER FLUSH 10 ML SYR IV SCH ×2 (07:37→07:39)
[2017-09-26 08:30] VITALS: BP 121/76
[2017-09-26] MEDS: FERROUS SULF 325 MG (IRON) TAB PO SCH (08:30)
--- NOTE | 2017-09-26 08:33 | Progress Note-Standard ---
Standard Progress Note Progress Notes/Assess & Plan Date Seen by Provider: Sep 26, 2017 Time Seen by Provider: 08:30 Progress/Assessment & Plan POD # 3 RLTCS - distress, failed TOLAC urine culture + gardenerella. Started on metronidazole. DC home today Vital Sign - Last 12Hours 09/25/17 09/26/17 21:30 03:30 Temp 98.6 97.7 Pulse 83 82 Resp 18 18 B/P (MAP) 112/71 (85) 98/70 (79) Pulse Ox 97 97 O2 Delivery Room Air Room Air MELISSA JIANG DO Sep 26, 2017 08:33
[2017-09-26] MEDS: HYDROcodone/APAP 5 MG/325 MG (LORTAB) TAB PO PRN ×2 (08:35→14:27)
[2017-09-26] MEDS: metroNIDAZOLE 500 MG (FLAGYL) TAB PO SCH (08:35)
--- NOTE | 2017-09-26 08:35 | Discharge Inst-Women's Service ---
Discharge Inst-Women's Serv Depart Medication/Instructions New, Converted or Re-Newed RX: RX on Chart Final Diagnosis intolerance/distress previous section failed trial of labor after section Consults/Follow Up Additional Follow Up: Yes (1 week with [facility], 6 weeks for pp exam with [facility]) Activity Activity: Activity as Tolerated Driving Instructions: No Driving for 1 Week NO SMOKING: NO SMOKING Nothing Inside Vagina: No Douching, No [place], No Tampons Diet Discharge Diet: No Restrictions Symptoms to Report to : Swelling Increased, Bleeding Excessive, Pain Increased, Fever Over 101 Degrees F, Vaginal Bleeding Increase, Cramps in Feet or Legs, Vaginal Discharge Foul For Any Problems or Questions: Contact Your Physician Skin/Wound Care Infection Signs and Symptoms: Increased Redness, Foul Odor of Wound, Increased Drainage, Skin Itchy or Has a Rash, Increased Swelling, Temperature Above 101 F Operative Area Clean and Dry: Keep Incision Clean/Dry Stitches/[place]/Dermabond: Dermabond Bathing Instructions: MELISSA Bianchi DO Sep 26, 2017 08:35
[2017-09-26] MEDS ORDERED: METR500T21 PO (08:36)
[2017-09-26] MEDS: DOCUSATE SODIUM 100 MG (COLACE) CAP PO SCH (08:49)
[2017-09-26 14:15] VITALS: BP 112/70
== END 2017-09-26 19:00 | disposition home or self-care (01) | DRG 765 ==
LOC: LDRP 06:16
PROVIDERS: ADMIT Obstetrics & Gynecology; ATTEND Obstetrics & Gynecology
PROC: 10D00Z1 Extraction of Products of Conception, Low, Open Approach (ICD-10-PCS; principal; 2017-09-23 19:36)
DX: O99.824 Streptococcus B carrier state complicating childbirth (principal); O66.41 Failed attempted vaginal birth after previous cesarean delivery; O32.4XX0 Maternal care for high head at term, not applicable or unspecified; O65.5 Obstructed labor due to abnormality of maternal pelvic organs; O34.211 Maternal care for low transverse scar from previous cesarean delivery; O90.81 Anemia of the puerperium; D62 Acute posthemorrhagic anemia; Z3A.40 40 weeks gestation of pregnancy; Z37.0 Single live birth
CPT/HCPCS: 36415; 81000; 85025; 86850; 86900; 86901; 87088; 94664

== ENCOUNTER 2019-01-09 17:26 | Emergency (ER) | payer OTHER ==
[~2019-01-09] VITALS: Ht 167.6 cm; Wt 122.5 kg
[~2019-01-09 17:26] MED LIST changes: +DOCU100C37 PO; +FERR325T18 PO; +Hydrocodone Bit/Acetaminophen PO; +IBUP-1773 PO; +METR-145 PO
--- OUTSIDE RECORDS SUMMARY | 2019-01-09 19:14 | XMS REPORT ---
Author Author REN SMITH [facility] Address [address] [place] [address] Care Team Providers Care Material Handler 1St Shift Name Role Phone REN SMITH Unavailable PROBLEMS Type Condition ICD9-CM Code [id number] Code Onset Dates Condition Status SNOMED Code Problem Attention-deficit hyperactivity disorder, predominantly hyperactive type F90.1 Active [id number] ALLERGIES No Information ENCOUNTERS Encounter Location Date Diagnosis [facility] [place] [address] [address] Aug, Encounter for immunization Z23 [address] [address] May, [address] [address] 10 Nov, 2016 Other viral agents as the cause of diseases classified elsewhere B97.89 ; Acute upper respiratory infection, unspecified J06.9 and Sore throat J02.9 [place] [id number] [place] [address] Oct, [address] [address] Sep, [address] [address] Sep, Attention-deficit hyperactivity disorder, predominantly hyperactive type F90.1 ; Overweight E66.3 and Well adult health check Z00.[address] [address] Aug, [address] [address] Aug, Visit for TB skin test Z11.1 IMMUNIZATIONS Vaccine Route Administration Date Status FLUARIX QUAD (3 AND UP) 2016 IM Intramuscular Aug 27, 2017 Administered SOCIAL HISTORY Never Assessed REASON FOR VISIT flu shot JStrasserRN PLAN OF CARE VITAL SIGNS MEDICATIONS Unknown Medications RESULTS No Results PROCEDURES Procedure Date Ordered Result Body Site FLUARIX QUAD (3 AND UP) 2016Aug 27, 2017 SINGLE IMMUNIZATION ADMIN Aug 27, 2017 INSTRUCTIONS MEDICATIONS ADMINISTERED No Known Medications MEDICAL (GENERAL) HISTORY Type Description Date Medical History anxiety Medical History attention deficit hyperactivity disorder Surgical History section 2010 Hospitalization History child 2010
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
--- OUTSIDE RECORDS SUMMARY | 2019-01-09 19:14 | XMS REPORT ---
Author Author DANA GALLEGOS Organization [facility] Address [address] [place] [address] Care Team Providers Care Log Grader Name Role Phone DANA GALLEGOS Unavailable PROBLEMS Type Condition ICD9-CM Code OQX70-ML Code Onset Dates Condition Status SNOMED Code Problem Attention-deficit hyperactivity disorder, predominantly hyperactive type F90.1 Active [id number] ALLERGIES No Information ENCOUNTERS Encounter Location Date Diagnosis [facility] [address] [id number] [place] [address] Aug, Encounter for immunization Z23 [address] [address] May, [facility] [address] [address] 10 Nov, 2016 Other viral agents as the cause of diseases classified elsewhere B97.89 ; Acute upper respiratory infection, unspecified J06.9 and Sore throat J02.9 [place] [address] [place] [id number] [place] [address] Oct, [place] [address] [place] [id number] [place] [address] Sep, [place] [address] [address] Sep, Attention-deficit hyperactivity disorder, predominantly hyperactive type F90.1 ; Overweight E66.3 and Well adult health check Z00.00 [facility] [address] [address] Aug, [place] [address] [address] 29 Nov, 2016 Visit for TB skin test Z11.1 IMMUNIZATIONS No Known Immunizations SOCIAL HISTORY Never Assessed REASON FOR VISIT Eye Exam PLAN OF CARE VITAL SIGNS MEDICATIONS Unknown Medications RESULTS No Results PROCEDURES No Known procedures INSTRUCTIONS MEDICATIONS ADMINISTERED No Known Medications MEDICAL (GENERAL) HISTORY Type Description Date Medical History anxiety Medical History attention deficit hyperactivity disorder Surgical History section 2010 Hospitalization History child 2010
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
[2019-01-09] MEDS ORDERED: NAPR-915 PO (19:46)
[2019-01-09] MEDS ORDERED: CYCL10TA9 PO (19:46)
[2019-01-09 20:15] VITALS: BP 135/102
== END 2019-01-09 20:15 | disposition home or self-care (01) ==
LOC: EDUNIT# 17:26 → ER 17:28
DX: S29.012A Strain of muscle and tendon of back wall of thorax, initial encounter (principal); R40.2142 Coma scale, eyes open, spontaneous, at arrival to emergency department; R40.2252 Coma scale, best verbal response, oriented, at arrival to emergency department; R40.2362 Coma scale, best motor response, obeys commands, at arrival to emergency department; F41.9 Anxiety disorder, unspecified; Z98.890 Other specified postprocedural states; V49.00XA Driver injured in collision with unspecified motor vehicles in nontraffic accident, initial encounter; Y92.481 Parking lot as the place of occurrence of the external cause
CPT/HCPCS: 72070

== ENCOUNTER → 2022-05-10 | Outpatient (CLI) | payer OTHER ==
[~2022-05-10] MED LIST changes: +CYCL10TA25 PO; +NAPR-915 PO
[2022-05-10 12:51] LABS: BASOPHILS # (AUTO) 0.1 10^3/uL (0.0-0.1); BASOPHILS % (AUTO) 1 % (0-10); EOSINOPHILS # (AUTO) 0.1 10^3/uL (0.0-0.3); EOSINOPHILS % (AUTO) 1 % (0-10); HEMATOCRIT 46 % (35-52); HEMOGLOBIN 14.9 g/dL (11.5-16.0); LYMPHOCYTES # (AUTO) 1.3 10^3/uL (1.0-4.0); LYMPHOCYTES % (AUTO) 14 % (12-44); MEAN CORPUSCULAR HEMOGLOBIN 29 pg (25-34); MEAN CORPUSCULAR HGB CONC 33 g/dL (32-36); MEAN CORPUSCULAR VOLUME 88 fL (80-99); MEAN PLATELET VOLUME 10.9 fL (9.0-12.2); MONOCYTES # (AUTO) 0.4 10^3/uL (0.0-1.0); MONOCYTES % (AUTO) 5 % (0-12); NEUTROPHILS # (AUTO) 7.4 10^3/uL (1.8-7.8); NEUTROPHILS % (AUTO) 80 % (42-75); PLATELET COUNT 237 10^3/uL (130-400); WHITE BLOOD COUNT 9.3 10^3/uL (4.3-11.0)
[2022-05-10 13:05] LABS: BAND NEUTROPHILS 2 %; BASOPHILS % (MANUAL) 1 %; LYMPHOCYTES % (MANUAL) 12 %; MONOCYTES % (MANUAL) 5 %; NEUTROPHILS % (MANUAL) 79 %
[2022-05-10 13:06] LABS: ATYPICAL LYMPHOCYTES 1 %; RBC MORPH NORMAL
[2022-05-10 13:07] LABS: BILIRUBIN,URINE 1+ (NEGATIVE); CLARITY,URINE CLEAR; COLOR,URINE YELLOW; GLUCOSE, URINE (UA) NEGATIVE (NEGATIVE); KETONES,URINE 1+ (NEGATIVE); LEUKOCYTE ESTERASE ,URINE NEGATIVE (NEGATIVE); NITRITE,URINE NEGATIVE (NEGATIVE); PROTEIN,URINE 2+ (NEGATIVE)
[2022-05-10 13:14] LABS: ALBUMIN 4.6 GM/DL (3.2-4.5); CHLORIDE 106 MMOL/L (98-107); SODIUM 138 MMOL/L (135-145)
[2022-05-10 13:15] LABS: CALCIUM 9.5 MG/DL (8.5-10.1)
[2022-05-10 13:16] LABS: GLUCOSE 120 MG/DL (70-105); TOTAL PROTEIN 8.3 GM/DL (6.4-8.2)
[2022-05-10 13:17] LABS: CARBON DIOXIDE 18 MMOL/L (21-32)
[2022-05-10 13:18] LABS: BILIRUBIN,TOTAL 0.7 MG/DL (0.1-1.0)
[2022-05-10 13:20] LABS: ALKALINE PHOSPHATASE 107 U/L (40-136); CREATININE SERUM 0.86 MG/DL (0.60-1.30); GFR ESTIMATED 89
[2022-05-10 13:21] LABS: BUN/CREATININE RATIO 17
[2022-05-10 13:22] LABS: BACTERIA,URINE FEW /HPF; RBC,URINE 50-100 /HPF; SQUAMOUS EPITHELIAL CELL,UR 0-2 /HPF; WBC,URINE 0-2 /HPF
[2022-05-10 13:23] LABS: ALANINE AMINOTRANSFERASE 45 U/L (0-55)
== END ==
LOC: LAB 12:14
PROVIDERS: ATTEND Nurse Practitioner Family
DX: R53.81 Other malaise (principal); T63.331A Toxic effect of venom of brown recluse spider, accidental (unintentional), initial encounter
CPT/HCPCS: 36415; 80053; 81000; 85007; 85027; 87088